=== PATIENT | female | born 1985 | race Caucasian/White ===

== ENCOUNTER 2017-04-28 19:03 | Emergency (ER) | payer SELFPAY ==
[2017-04-28 19:04] VITALS: BP 134/80; PULSE 135; RESP 20; TEMP 100.4; O2SAT 98
[2017-04-28] MEDS ORDERED: SODIUM CHLOR 0.9% 1000 ML INJ 1,000 ML IV SCH (19:44)
[2017-04-28] MEDS ORDERED: SODIUM CHLORIDE 0.9% FLUSH 10 ML FLUSH IV FLUSH PRN (19:45)
[2017-04-28] MEDS ORDERED: ACETAMINOPHEN 325 MG TAB PO ONE (19:45)
--- NOTE | 2017-04-28 19:52 | PD ---
HPI Chief Complaint: Chest Pain Time Seen by Provider: 19:44 Travel History International Travel<30 days: No Contact w/Intl Traveler<30days: No Traveled to known affect area: No History of Present Illness HPI 31-year-old female presents to the emergency department by private transportation in the care of family for evaluation of 2 days of cough productive of white sputum chest pain upper back pain flank pain right lower abdominal pain and epigastric pain. Patient also complains of myalgias and arthralgias of the upper and lower extremities. Patient is currently on meloxicam for arthritis pain and lisinopril HCTZ for hypertension. Patient is also noted fever and chills. Patient has had associated nausea without vomiting. Patient denies diarrhea. Patient does not report any hematemesis coffee-ground emesis melena or hematochezia. Patient also has noted decreased urine output. Patient did not have the flu vaccine for this season. Patient is status post hysterectomy tubal ligation and 2. Overall pain is moderate. PFSH Past Medical History Narrative Medical Hypertension; , tubal ligation, hysterectomy; no tobacco use; nursing notes reviewed Cardiovascular Problems: Yes (HTN) Social History Tobacco Use: No Allergies-Medications (Allergen,Severity, Reaction): Coded Allergies: No Known Allergies (Unverified , 04/28/17) Reported Meds & Prescriptions Reported Meds & Active Scripts Active Proair Hfa 8.5 GM Inh (Albuterol Sulfate) 90 Mcg/Act Aer 2 Puff INH Q4-6H PRN 108 mcg/actuation Zithromax Z-Reggie (Azithromycin) 250 Mg Dspk 250 Mg PO DIRECTED 500 MG (2 tabs) day 1, then 1 tab days 2-5. Reported Meloxicam 15 Mg Tab 15 Mg PO DAILY Lisinopril 20 Mg Tab 20 Mg PO DAILY Hydrochlorothiazide 12.5 Mg Cap 12.5 Mg PO DAILY Narrative Medication Meloxicam lisinopril HCTZ Review of Systems Except as stated in HPI: all other systems reviewed are Neg General / Constitutional: Positive: Fever, Chills HENT: Positive: Headaches, Congestion, No: Sore Throat Cardiovascular: Positive: Chest Pain or Discomfort Respiratory: Positive: Cough, Shortness of Breath, No: Pleuritic Pain Gastrointestinal: Positive: Nausea, Abdominal Pain, No: Vomiting, Diarrhea Genitourinary: Positive: Decreased Urinary Output Musculoskeletal: Positive: Myalgias, Arthralgias Skin: No Rash Neurologic: Positive: Weakness Psychiatric: No: Anxiety Hematologic/Lymphatic: No: Lymph Node Enlargement Physical Exam Narrative GENERAL: Well-developed well-nourished female in no acute distress or respiratory distress on lunchroom monitor sinus tachycardia with continuous pulse oximetry room air O2 saturation 96 % SKIN: Warm and dry. HEAD: Normocephalic. EYES: No scleral icterus. No injection or drainage. NECK: Supple, trachea midline. No JVD or lymphadenopathy. CARDIOVASCULAR: Increased regular rate and rhythm without murmurs, gallops, or rubs. RESPIRATORY: Breath sounds equal bilaterally. No accessory muscle use. GASTROINTESTINAL: Abdomen soft, reproducible mild epigastric and right lower quadrant tenderness to palpation without guarding or rebound, nondistended. MUSCULOSKELETAL: No cyanosis, or edema. BACK: Nontender without obvious deformity. No CVA tenderness. Data Data Last Documented VS Vital Signs Date Time Temp Pulse Resp B/P (MAP) Pulse Ox O2 Delivery O2 Flow Rate FiO2 04/29/17 00:12 97 16 125/80 (95) 98 04/28/17 21:36 98.5 04/28/17 21:00 Room Air Orders Orders Complete Blood Count With Diff (04/28/17 19:44) Comprehensive Metabolic Panel (04/28/17 19:44) Lipase (04/28/17 19:44) Lactic Acid (04/28/17 19:44) Prothrombin Time / Inr (Pt) (04/28/17 19:44) Act Partial Throm Time (Ptt) (04/28/17 19:44) Urinalysis - C+S If Indicated (04/28/17 19:44) Iv Access Insert/Monitor (04/28/17 19:44) Ecg Monitoring (04/28/17 19:44) Oximetry (04/28/17 19:44) Sodium Chlor 0.9% 1000 Ml Inj (Ns 1000 M (04/28/17 19:44) Sodium Chloride 0.9% Flush (Ns Flush) (04/28/17 19:45) Electrocardiogram (04/28/17 19:44) Chest, Single Ap (04/28/17 19:44) Influenzae A/B Antigen (04/28/17 19:44) Acetaminophen (Tylenol) (04/28/17 19:45) Troponin I (04/28/17 19:44) Blood Culture (04/28/17 19:44) D-Dimer (04/28/17 21:49) B-Type Natriuretic Peptide (04/28/17 21:49) Ketorolac Inj (Toradol Inj) (04/28/17 23:30) Sodium Chlor 0.9% 1000 Ml Inj (Ns 1000 M (04/28/17 23:30) Azithromycin (Zithromax) (04/28/17 23:30) Ed Discharge Order (04/28/17 23:29) Labs Laboratory Tests Test 04/28/17 19:50 04/28/17 20:00 04/28/17 22:02 White Blood Count 6.6 TH/MM3 Red Blood Count 4.53 MIL/MM3 Hemoglobin 12.4 GM/DL Hematocrit 35.6 % Mean Corpuscular Volume 78.7 FL Mean Corpuscular Hemoglobin 27.3 PG Mean Corpuscular Hemoglobin Concent 34.7 % Red Cell Distribution Width 14.4 % Platelet Count 259 TH/MM3 Mean Platelet Volume 9.9 FL Neutrophils (%) (Auto) 75.8 % Lymphocytes (%) (Auto) 10.1 % Monocytes (%) (Auto) 12.5 % Eosinophils (%) (Auto) 1.1 % Basophils (%) (Auto) 0.5 % Neutrophils # (Auto) 5.0 TH/MM3 Lymphocytes # (Auto) 0.7 TH/MM3 Monocytes # (Auto) 0.8 TH/MM3 Eosinophils # (Auto) 0.1 TH/MM3 Basophils # (Auto) 0.0 TH/MM3 CBC Comment DIFF FINAL Differential Comment Prothrombin Time 10.6 SEC Prothromb Time International Ratio 1.0 RATIO Activated Partial Thromboplast Time 26.0 SEC D-Dimer Quantitative (PE/DVT) 0.49 MG/L FEU Blood Urea Nitrogen 10 MG/DL Creatinine 0.80 MG/DL Random Glucose 83 MG/DL Total Protein 8.7 GM/DL Albumin 4.2 GM/DL Calcium Level 9.0 MG/DL Alkaline Phosphatase 94 U/L Aspartate Amino Transf (AST/SGOT) 20 U/L Alanine Aminotransferase (ALT/SGPT) 29 U/L Total Bilirubin 0.2 MG/DL Sodium Level 134 MEQ/L Potassium Level 3.5 MEQ/L Chloride Level 100 MEQ/L Carbon Dioxide Level 26.6 MEQ/L Anion Gap 7 MEQ/L Estimat Glomerular Filtration Rate 83 ML/MIN Troponin I LESS THAN 0.02 NG/ML B-Type Natriuretic Peptide LESS THAN 2 PG/ML Lipase 168 U/L Lactic Acid Level 1.0 mmol/L Urine Color YELLOW Urine Turbidity CLOUDY Urine pH 8.0 Urine Specific Mcgraw 1.018 Urine Protein 30 mg/dL Urine Glucose (UA) NEG mg/dL Urine Ketones NEG mg/dL Urine Occult Blood TRACE Urine Nitrite NEG Urine Bilirubin NEG Urine Urobilinogen LESS THAN 2.0 MG/DL Urine Leukocyte Esterase LARGE Urine RBC 4 /hpf Urine WBC 7 /hpf Urine Squamous Epithelial Cells 41 /hpf Microscopic Urinalysis Comment CULT NOT INDICATED MDM Medical Decision Making Medical Screen Exam Complete: Yes Emergency Medical Condition: Yes Medical Record Reviewed: Yes Differential Diagnosis Febrile illness, influenza, pneumonia, bronchitis, atypical chest pain, ACS, [place] , dehydration, sepsis, gastritis, cholecystitis, atypical appendicitis, UTI Narrative Course Patient placed on lunchroom monitor with continuous pulse oximetry IV access obtained specimens collected and sent for resulting patient given bolus of normal saline and acetaminophen Diagnosis Primary Impression: Bronchitis Referrals: Primary Care Physician call for appointment Patient Instructions: General Instructions Med/Other Pt SpecificInfo: Prescription(s) given Scripts Albuterol 8.5 GM Inh (Proair Hfa 8.5 GM Inh) 90 Mcg/Act Aer 2 PUFF INH Q4-6H Y for SHORTNESS OF BREATH, #1 INHALER 0 Refills 108 mcg/actuation Prov: Yanet Peterson MD 04/28/17 Azithromycin (Zithromax Z-Reggie) 250 Mg Dspk 250 MG PO DIRECTED for Infection, #1 DSPK 0 Refills 500 MG (2 tabs) day 1, then 1 tab days 2-5. Prov: Yanet Peterson MD 04/28/17 Disposition: 01 DISCHARGE HOME Condition: Stable Yanet Peterson MD Apr 28, 2017 19:52
[2017-04-28 20:00] VITALS: BP 134/72; PULSE 118; RESP 18; O2SAT 97
[2017-04-28 20:05] LABS: BASOPHIL % 0.5 % (0.0-2.0); EOSINOPHIL # 0.1 TH/MM3 (0-0.4); EOSINOPHIL % 1.1 % (0.0-4.0); HEMATOCRIT 35.6 % (35.0-46.0); HEMOGLOBIN 12.4 GM/DL (11.6-15.3); LYMPH % 10.1 % (9.0-44.0); LYMPHOCYTE # 0.7 TH/MM3 (1.0-4.8); MEAN CELL VOLUME 78.7 FL (80.0-100.0); MEAN CORPUSCULAR HEMOGLOBIN 27.3 PG (27.0-34.0); MEAN CORPUSCULAR HGB CONC 34.7 % (32.0-36.0); MEAN PLATELET VOLUME 9.9 FL (7.0-11.0); MONO % 12.5 % (0.0-8.0); MONOCYTE # 0.8 TH/MM3 (0-0.9); NEUT % 75.8 % (16.0-70.0); PLATELET COUNT 259 TH/MM3 (150-450); RED BLOOD COUNT 4.53 MIL/MM3 (4.00-5.30); RED CELL DISTRIBUTION WIDTH 14.4 % (11.6-17.2); WHITE BLOOD COUNT 6.6 TH/MM3 (4.0-11.0)
[2017-04-28 20:21] LABS: ALBUMIN 4.2 GM/DL (3.4-5.0); AST (GOT) 20 U/L (15-37); BICARBONATE 26.6 MEQ/L (21.0-32.0); BLOOD UREA NITROGEN 10 MG/DL (7-18); CHLORIDE 100 MEQ/L (98-107); GLOMERULAR FILTRATION RATE 83 ML/MIN (>89); GLUCOSE,RANDOM 83 MG/DL (74-106); SODIUM (NA) 134 MEQ/L (136-145)
[2017-04-28 20:22] LABS: ALT (GPT) 29 U/L (10-53)
[2017-04-28 20:27] LABS: ALKALINE PHOSPHATASE 94 U/L (45-117); TOTAL BILIRUBIN ADULT 0.2 MG/DL (0.2-1.0); TOTAL PROTEIN 8.7 GM/DL (6.4-8.2); TROPONIN I LESS THAN 0.02 NG/ML (0.02-0.05)
[2017-04-28 20:31] LABS: PROTHROMBIN TIME - PATIENT 10.6 SEC (9.8-11.6)
--- NOTE | 2017-04-28 20:56 | RADRPT ---
EXAM DATE/TIME: 04/28/2017 20:17 [facility] COMPARISON: No previous studies available for comparison. INDICATIONS : Fever and cough. MEDICAL HISTORY : None. SURGICAL HISTORY : None. ENCOUNTER: Initial ACUITY: 1 day PAIN SCORE: 0/10 LOCATION: Bilateral chest FINDINGS: Low lung volumes which accentuate the interstitial markings. No significant focal pleural or parenchy mal opacities. Cardiomediastinal contours are within normal limits. Bony thorax is intact. CONCLUSION: 1. Poor inspiratory effort with low lung volumes which accentuate the interstitial markings. 2. Otherwise, no acute cardiopulmonary disease. Carlos Love MD on April 28, 2017 at 20:54 Board Certified Radiologist. This report was verified electronically.
[2017-04-28 21:00] VITALS: BP 122/65; PULSE 110; RESP 18; O2SAT 97
[2017-04-28] MEDS ORDERED: HYDR12.57 PO (21:18)
[2017-04-28] MEDS ORDERED: MELO15TA20 PO (21:18)
[2017-04-28] MEDS ORDERED: LISI-515 PO (21:18)
[2017-04-28 21:36] VITALS: TEMP 98.5
[2017-04-28 22:27] LABS: BILIRUBIN, URINE NEG (NEG); BLOOD, URINE TRACE (NEG); GLUCOSE,URINE NEG (NEG); KETONE, URINE NEG (NEG); NITRITE,URINE NEG (NEG); SQUAMOUS EPITHELIAL CELL URINE 41 /hpf (0-5); URINE COLOR YELLOW (YELLW/STRAW); URINE LEUKOCYTE ESTERASE LARGE (NEG)
--- NOTE | 2017-04-28 23:00 | EKG ---
Date Performed: 04/28/2017 Time Performed: 19:58:27 PTAGE: 31 years EKG: SINUS TACHYCARDIA ABNORMAL RHYTHM ECG NO PREVIOUS TRACING DOCTOR: Bruce Gao Interpretating Date/Time 04/28/2017 22:59:15
[2017-04-28] MEDS ORDERED: AZITHROMYCIN 250 MG TAB PO ONE (23:30)
[2017-04-28] MEDS ORDERED: ALBUAER3 INH (23:30)
[2017-04-28] MEDS ORDERED: KETOROLAC TROMETHAMINE 30 MG/ML (IVP) VIAL IV PUSH ONE (23:30)
[2017-04-28] MEDS ORDERED: SODIUM CHLOR 0.9% 1000 ML INJ 1,000 ML IV ONE (23:30)
[2017-04-28] MEDS ORDERED: ZITHTAB PO (23:30)
[2017-04-29 00:12] VITALS: BP 125/80
== END 2017-04-29 00:43 | disposition home or self-care (01) ==
LOC: NEPC 19:03
DX: J40 Bronchitis, not specified as acute or chronic (principal); R00.0 Tachycardia, unspecified; R11.0 Nausea; R10.13 Epigastric pain; R94.31 Abnormal electrocardiogram [ECG] [EKG]; I10 Essential (primary) hypertension; Z79.899 Other long term (current) drug therapy
CPT/HCPCS: 71045; 80053; 81001; 83605; 83690; 83880; 84484; 85025; 85379; 85610; 85730; 87040; 87804; 93005; 96361; 96374; 99285; J1885; J7030; L0150